=== PATIENT | male | born 2005 | race Caucasian/White ===

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

== ENCOUNTER 2025-01-13 10:17 | Emergency (ER) | payer OTHER, SELFPAY ==
[2025-01-13 10:33] VITALS: BP 147/81; PULSE 82; RESP 20; TEMP 36.8; O2SAT 98; BMI 25.8
--- NOTE | 2025-01-13 10:44 | XR_ITS ---
PROCEDURE INFORMATION: Exam: XR Right Foot Exam date and time: 01/13/2025 10:46 AM Age: 19 years old Clinical indication: Injury or trauma; Other: Dropped transmission on ankle/foot; Blunt trauma; Right TECHNIQUE: Imaging protocol: Radiologic exam of the right foot. Views: 3 or more views. COMPARISON: CR Ankle R 01/13/2025 10:44 AM FINDINGS: Bones/joints: There is no evidence of acute fracture.There is no evidence of malalignment or dislocation. Soft tissues: Normal. IMPRESSION: There is no evidence of acute fracture.There is no evidence of malalignment or dislocation.
--- NOTE | 2025-01-13 10:44 | XR_ITS ---
PROCEDURE INFORMATION: Exam: XR Right Ankle Exam date and time: 01/13/2025 10:44 AM Age: 19 years old Clinical indication: Injury or trauma; Other: Dropped transmission on ankle; Blunt trauma; Right; Injury details: Open wound on anterior ankle TECHNIQUE: Imaging protocol: Radiologic exam of the right ankle. Views: 3 or more views. COMPARISON: No relevant prior studies available. FINDINGS: Bones/joints: There is no evidence of acute fracture.There is no evidence of malalignment or dislocation. Soft tissues: Normal. IMPRESSION: There is no evidence of acute fracture.There is no evidence of malalignment or dislocation.
[2025-01-13] MEDS: LIDOCAINE 1% 10ML MDV 10 ML IJ (11:50)
--- NOTE | 2025-01-13 12:00 | HMH.EDGENADL ---
Discharge Plan Disposition Patient Disposition: Home, Self-Care Prescriptions Prescriptions: New cephalexin 500 mg capsule 1,000 mg PO BID 7 Days Qty: 28 0RF No Action ketorolac 10 mg tablet 10 mg PO Q8H PRN (Reason: pain) 1 Days Qty: 14 0RF tamsulosin [Flomax] 0.4 mg capsule 0.4 mg PO DAILY Qty: 7 0RF oxycodone 5 mg tablet 5 mg PO Q8H PRN (Reason: pain) Qty: 12 0RF ondansetron 4 mg tablet,disintegrating 4 mg PO Q8H PRN (Reason: nausea and vomiting) 4 Days Qty: 12 0RF Referrals Follow up/Referrals: Provider,Referral, MD [Primary Care Provider] - See instructions Activity Restrictions/Add. Instructions Additional Instructions/Restrictions: Call your family doctor to establish care for this visit to the emergency department and schedule follow-up within 48 hours to ensure improvement. If you have any worsening of your condition or any other concerning signs or symptoms, return to the emergency department or your primary care doctor for further evaluation. Stitches to be removed in 10 to 14 days, come to the emergency department or see your family doctor to have them removed. Clinical Impressions Clinical Impression: Foot laceration, Crush injury of right foot Print Language Print Language: Sinhala Discharge ED Provider: Fito Herrera General Adult HPI General Chief complaint: Extremity Injury, Lower Stated complaint: AO 01/12 dropped transmission on R.food cut Time Seen by Provider: 01/13/25 10:37 Mode of Arrival: Ambulatory Source of Information: Patient Description of Symptoms (Recalled from ER Triage Doc. by RN): pt had transmission dropped on right ankle last night, ankle is sore and swollen and bruised with small lac on top of foot History of Present Illness HPI narrative: Please note that above description of symptoms, in this electronic medical record under categorization of recalled from ER triage doctor by RN are reflective of an initial nursing assessment, however, is not reflective of my full history and physical exam that was personally taken and clarified. Consequentially, this preceding description of symptoms, which may include the patient's categorized chief complaint in the EMR, do not reflect my personal clinical impression, and the ultimate description of history of present illness and patient stated complaints should be deferred to this section of the note. Unless stated otherwise or congruent with this section of the note, additional signs, symptoms, or incongruence should be interpreted as inaccurate with my clinical impression. Related Data Previous Rx's ?Medication ?Instructions ?Recorded ketorolac 10 mg tablet 10 mg PO Q8H PRN pain 1 day #14 11/29/23 tabs ondansetron 4 mg disintegrating 4 mg PO Q8H PRN nausea and 11/29/23 tablet vomiting 4 days #12 tabs oxycodone 5 mg tablet 5 mg PO Q8H PRN pain #12 tabs 11/29/23 tamsulosin 0.4 mg capsule (Flomax) 0.4 mg PO DAILY #7 caps 11/29/23 cephalexin 500 mg capsule 1,000 mg (2 x 500 mg) PO BID 7 01/13/25 days #28 caps Allergies Allergy/AdvReac Type Severity Reaction Status Date / Time No Known Allergies Allergy Verified 11/29/23 14:02 [facility] Disclaimer: The information contained in this section may have been updated after the patient was seen, as this information can be updated by other users. Social History (Updated 11/29/23 @ 14:54 by Fito Herrera MD) Smoking Status: Current every day smoker alcohol intake: never current occupational status: employed Travel in the last 8 weeks?: None ROS Obtained: Yes All systems reviewed & no additional complaints except as documented Physical Exam General General appearance: alert Head Head exam: atraumatic and normocephalic Eye Eye exam: Present normal appearance, PERRL and EOMI Neck Neck exam: Present normal inspection, full ROM and trachea midline Respiratory Respiratory exam: Absent respiratory distress, wheezes, stridor, accessory muscle use or prolonged expiratory phase Cardiovascular Cardiovascular exam: Present other (Pulses equal symmetric in upper and lower extremities) Abdominal Exam Abdominal exam: Present soft; Absent distention, tenderness or pulsatile mass Extremities Exam Extremities exam: Present other (2 cm laceration overlying the distal tibia. Surrounding tenderness. Exposed muscle); Absent edema Neurological Exam Neurological exam: Present alert, oriented X3 and CN II-XII intact; Absent motor sensory deficit Skin Skin exam: Present warm and dry; Absent diaphoresis or erythema Medical Decision Making Medical Records Medical records reviewed: Yes I reviewed the patient's medical records. Screening: Per USPSTF and CDC recommendations, given the prevalence of disease in our region, it is our hospital?s policy to screen for HIV and viral Hepatitis for all patients aged 18 and over and those with ongoing risk factors. Melchor Inquiry Pt receiving controlled substance: No Melchor was queried for this patient: No Vital Signs: 01/13/25 10:33 01/13/25 12:21 Temperature 98.2 F Temperature Source Oral Pulse Rate 61 Pulse Rate [Left Radial] 82 Respiratory Rate 20 14 Blood Pressure 197/66 H Blood Pressure [Right Arm] 147/81 H Blood Pressure Mean [Right Arm] 103 02 Sat by Pulse Oximetry 98 98 Oxygen Delivery Method Room Air Room Air Orders (Tests/Meds): ED MEDICATIONS Discontinued Medications Generic Name Dose Route Start Last Admin Trade Name Freq PRN Reason Stop Dose Admin Lidocaine HCl 10 ml 01/13/25 11:42 01/13/25 11:50 Lidocaine 1% 10ml Mdv IJ 01/13/25 11:43 10 ml ONCE ONE Administration ORDERS Category Date Time Status XR ankle RT min 3V Stat Exams 01/13/25 10:44 Completed XR foot RT min 3V Stat Exams 01/13/25 10:44 Completed Medical Decision Narrative: 19-year-old male presenting with right lower extremity injury. He states that he dropped a transmission on it last night, 01/12 in the PM. Able to ambulate, came in for further evaluation given laceration. Pain is mild to moderate in intensity. History obtained to patient. On arrival, has 2 cm laceration overlying tibiotalar joint. Full range of motion. No obvious discharge or deformity. Neurovascular intact. Differential includes fracture, uncomplicated laceration, dislocation, neurovascular injury, among others. X-rays obtained. On independent interpretation, these were negative for acute bony abnormality. Laceration was numbed and repaired. Because patient at baseline without signs or symptoms of clinical decompensation, deemed appropriate for discharge. Results were relayed to patient who voiced understanding and were agreeable to outpatient management and follow up. I discussed my clinical impression with patient and answered all questions. At this time, the evidence for any other entities in the differential is insufficient to warrant any further testing or ED observation. This was explained as well. Advisory was given that persistent or worsening symptoms require further evaluation. I confirmed the understanding of this discussion. Photocomposition Keyboard Operator disclaimer Much of this encounter note is an electronic physics department chair spoken language to printed text. Electronic physics department chair of the spoken language may permit errors. Although I have reviewed the note, some errors may still exist. Procedures Laceration Laceration 1: Site: foot Side (If applicable): right Size (cm): 2 Description: linear Depth: involves subcutaneous layer Local Anesthetic: lidocaine 1% Amount of anesthesia used (mL): 5 Pre-repair: wound explored and irrigated extensively Skin layer closed with: nylon Size (cm): 3-0 Number of sutures: 3 Technique: simple, interrupted Critical Care Critical Care Time Critical Care Time: No
[2025-01-13 12:21] VITALS: BP 197/66; PULSE 61; RESP 14; O2SAT 98
[2025-01-13 13:24] VITALS: BP 136/79; PULSE 80; RESP 20; TEMP 36.8; O2SAT 98
== END 2025-01-13 13:25 | disposition home or self-care (01) ==
PROVIDERS: Emergency Provider Emergency Medicine
DX: S97.81XA Crushing injury of right foot, initial encounter (principal); S91.311A Laceration without foreign body, right foot, initial encounter; W23.2XXA Caught, crushed, jammed or pinched between a moving and stationary object, initial encounter
CPT/HCPCS: 12001; 73610; 73630; 99284; J2003

== ENCOUNTER 2025-04-27 17:14 | Emergency (ER) | payer OTHER, SELFPAY ==
[2025-04-27 17:23] VITALS: BP 155/75; PULSE 58; RESP 17; TEMP 36.9; O2SAT 99; BMI 26.8
--- OUTSIDE RECORDS SUMMARY | 2025-04-27 17:30 | XMS_ITS | Clinical Summary ---
Author Organization [facility] Address [address] [place] [address] Care Team Providers Care Tie Inspector Name Role Phone Unavailable Primary Care Provider Unavailabl e Allergies No known active allergies Immunizations Immunization Administration Dates Next Due Tdap 03/19/2023 Social History Tobacco Use Types Packs/Day Years Used Date Smoking Tobacco: Never Assessed Sex and Gender Information Value Date Recorded Sex Assigned at Not on file Legal Sex Male 2:23 PM EDT Gender Identity Not on file Sexual Orientation Not on file Plan of Treatment Health Maintenance Due Date Last Done Comments [facility]-Depression Screening 2005 [facility]-Infant/Child/Adol SDOH Screenings 2005 Fluoride Varnish 08/07/2006 [facility]- SDOH Screenings 12/07/2023 [facility]-Adult SDOH Screenings 12/07/2023 [id number] Vaccine ( season) 2024 [facility]-Influenza Vaccine (#1) 04/30/202509/11, 06/13/2011, 08/14/2010 [facility]-DTaP,Tdap,and Td Vaccines (7 - Td or Tdap) 03/19/2033 03/19/2023, 01/22/2017, 12/23/2009, Additional history exists [facility]-Zoster Vaccines (1 of 2) 12/07/2055 04/28/2011, 12/23/2009 [facility]-Hepatitis B Vaccines Completed 006, 02/09/2006, 2005 [facility]-Pneumococcal Vaccine: Pediatrics (0 to 5 Years) and At-Risk Patients (6 to 49 Years) Aged Out 12/14/2006 No longer eligible based on patient's age to complete this topic [facility]-HIB Vaccines Completed 12/23/2009, , 04/13/2006, Additional history exists [facility]-Hepatitis A Vaccines Completed 12/23/2009, 11/28 [facility]-IPV Vaccines Completed 12/23/2009, , 12/14/2006, Additional history exists [facility]-Varicella Vaccines Completed 04/28/2011, 2009 HPV Vaccines Completed 02/11/2018, 01/22/2017 [facility]-Rotavirus Vaccines Aged Out No lo nger eligible based on patient's age to complete this topic Insurance [employer]
--- NOTE | 2025-04-27 17:53 | ED_ITS ---
<Statement entered by Tereso Inman MD - 04/27/25 23:51> I was consulted by the CHADD, and we discussed the complexity of the problems being addressed. I approved the treatment and management plan for this patient's care in the emergency department, thus performing a substantive portion of the medical decision making. Tereso Inman MD Discharge Plan Disposition Patient Disposition: Home, Self-Care Prescriptions Prescriptions: New sulfamethoxazole-trimethoprim [Bactrim DS] 800-160 mg tablet 1 tab PO BID 10 Days Qty: 20 0RF No Action cephalexin 500 mg capsule 1,000 mg PO BID 7 Days Qty: 28 0RF ketorolac 10 mg tablet 10 mg PO Q8H PRN (Reason: pain) 1 Days Qty: 14 0RF tamsulosin [Flomax] 0.4 mg capsule 0.4 mg PO DAILY Qty: 7 0RF oxycodone 5 mg tablet 5 mg PO Q8H PRN (Reason: pain) Qty: 12 0RF ondansetron 4 mg tablet,disintegrating 4 mg PO Q8H PRN (Reason: nausea and vomiting) 4 Days Qty: 12 0RF Referrals Follow up/Referrals: Provider,Referral, MD [Primary Care Provider, Medical] - See instructions Activity Restrictions/Add. Instructions Additional Instructions/Restrictions: Take meds as directed. May use heat or ice for comfort. If symptoms worsen or do not improve please return to the ED or follow-up with your PCP. Clinical Impressions Clinical Impression: Injury of muscle, Insect bite Instructions Patient Instructions: DI for Wound Infection, DI for Muscle Spasm Print Language Print Language: Turkish Discharge ED Provider: Tereso Inman General Adult HPI General Chief complaint: PAIN Stated complaint: Poss bite L arm elbow area Time Seen by Provider: 04/27/25 17:48 Mode of Arrival: Ambulatory Source of Information: Patient Description of Symptoms (Recalled from ER Triage Doc. by RN): patient states he thinks one week ago he was bit by a spider one week ago on his left elbow area and today at work he started having an aching pain in his left bicep that feels like a pulled muscle History of Present Illness HPI narrative: 19-year-old male presents to the ED today for left upper arm pain. He states that today he was at work and started having tricep pain. He says he did not hear any pop or feel a pop but was working and started having pain in the tricep area closer to his elbow. He says it only hurts right next to his elbow. He has good range of motion at his elbow and pain nowhere else. He denies fevers or chills. No redness or swelling. He does have 2 bites . He says 1 has been there for 2 days and the other has been there for 7 or 8 days. He said one of them popped but the other 1 looks like it has something in it. He says he thought they were spider bites. His mom made him come today because of those bites. He has no other symptoms today. Related Data Previous Rx's ?Medication ?Instructions ?Recorded ketorolac 10 mg tablet 10 mg PO Q8H PRN pain 1 day #14 11/29/23 tabs ondansetron 4 mg disintegrating 4 mg PO Q8H PRN nausea and 11/29/23 tablet vomiting 4 days #12 tabs oxycodone 5 mg tablet 5 mg PO Q8H PRN pain #12 tab s 11/29/23 tamsulosin 0.4 mg capsule (Flomax) 0.4 mg PO DAILY #7 caps 11/29/23 cephalexin 500 mg capsule 1,000 mg (2 x 500 mg) PO BID 7 01/13/25 days #28 caps sulfamethoxazole 800 1 tab PO BID 10 days #20 tab s 04/27/25 mg-trimethoprim 160 mg tablet (Bactrim DS) Allergies Allergy/AdvReac Type Severity Reaction Status Date / Time No Known Allergies Allergy Verified 11/29/23 14:02 [facility] Disclaimer: The information contained in this section may have been updated after the patient was seen, as this information can be updated by other users. Social History (Updated 01/13/25 @ 13:24 by Fito Herrera MD) Smoking Status: Current every day smoker alcohol intake: never current occupational status: employed Travel in the last 8 weeks?: None Have you lived/traveled outside [place] in past 30 days?: No Contact w/someone who lives/traveled outside [place] past 30 days?: No Exposure to someone with infectious disease in past 14 days?: No Do you have a fever (greater than 100.4 F or 38 C)?: No Have you tested positive for COVID-19?: No Exposed to someone with COVID-19 in past 14 days?: No Do you have a sore throat?: No Do you have a cough?: No Do you have any weakness?: No Do you have any diarrhea?: No Are you experiencing any unusual bleeding?: No Do you have any muscle aches/pain?: No Do you have any abdominal pain?: No Are you experiencing loss of taste or smell?: No ROS Obtained: Yes Systems reviewed as appropriate & no additional complaints except as documented Constitutional Constitutional: Reports as per HPI Physical Exam General General appearance: alert and in no apparent distress Head Head exam: normocephalic Eye Eye exam: Present PERRL and EOMI ENT ENT exam: Present normal oropharynx and mucous membranes moist Neck Neck exam: Present full ROM and trachea midline Respiratory Respiratory exam: Present normal lung sounds bilaterally Cardiovascular Cardiovascular exam: Present regular rate, normal rhythm, normal heart sounds, +S1 and +S2 Extremities Exam Extremities exam: Present full ROM, tenderness (Medial left arm tenderness, 2 areas of erythema 1 is scabbed over the other has some drainage and it, mildly tender) and normal capillary refill Neurological Exam Neurological exam: Present alert and oriented X3 Skin Skin exam: Present warm, dry and erythema (To spots on his left medial elbow 1 is on his elbow) Medical Decision Making Medical Records Screening: Per USPSTF and CDC recommendations, given the prevalence of disease in our region, it is our hospital?s policy to screen for HIV and viral Hepatitis for all patients aged 18 and over and those with ongoing risk factors. Melchor Inquiry Pt receiving controlled substance: No Melchor was queried for this patient: No Vital Signs: 04/27/25 17:23 04/27/25 19:24 Temperature 98.4 F 97.9 F Temperature Source Oral Oral Pulse Rate 56 L Pulse Rate [Right Radial] 58 L Respiratory Rate 17 16 Blood Pressure 136/58 L Blood Pressure [Right Arm] 155/75 H Blood Pressure Mean [Right Arm] 101 Blood Pressure Source [Right Arm] Automatic Cuff Blood Pressure Position [Right Arm] Supine 02 Sat by Pulse Oximetry 99 Oxygen Delivery Method Room Air Room Air Orders (Tests/Meds): ED MEDICATIONS Discontinued Medications Generic Name Dose Route Start Last Admin Trade Name Freq PRN Reason Stop Dose Admin Ketorolac Tromethamine 30 mg 04/27/25 17:53 04/27/25 18:12 Ketorolac 30mg/Ml Vial IM 04/27/25 17:54 30 mg ONCE ONE Administration Orphenadrine Citrate 60 mg 04/27/25 17:53 04/27/25 18:13 Orphenadrine Citrate 60mg/2ml Vial IM 04/27/25 17:54 60 mg ONCE ONE Administration ORDERS Category Date Time Status Humerus XR left [XR humerus LT] Stat Exams 04/27/25 18:00 Completed Medical Decision Narrative: patient is a 19-year-old male presenting to the emergency department for evaluation of left elbow tricep pain. Patient is hemodynamically stable and nontoxic-appearing upon arrival, afebrile. Differential diagnosis includes muscle strain or sprain, bug bites versus abscess or boil, among others. Workup will be conducted with specific imaging. Initial inventions include analgesics. X-ray showed nothing acute. Patient does have a muscle strain. I am we will treat the bug bites with some Bactrim just to be sure those do not become infected. Patient has been educated and we will send meds to the pharmacy patient is safe for discharge home. Critical Care Critical Care Time Critical Care Time: No
--- NOTE | 2025-04-27 18:00 | XR_ITS ---
PROCEDURE INFORMATION: Exam: XR Left Humerus Exam date and time: 04/27/2025 5:54 PM Age: 19 years old Clinical indication: Pain; Upper arm; Left TECHNIQUE: Imaging protocol: Radiologic exam of the left humerus. Views: 2 or more views. COMPARISON: No relevant prior studies available. FINDINGS: Bones/joints: There is no evidence of acute fracture or dislocation. Joint spaces appear preserved. Soft tissues: No significant soft tissue edema. No subcutaneous emphysema or radiopaque foreign bodies. IMPRESSION: No acute posttraumatic osseous injury.
[2025-04-27] MEDS: KETOROLAC 30MG/ML VIAL 30 MG IM (18:12)
[2025-04-27] MEDS: ORPHENADRINE CITRATE 60MG/2ML VIAL 60 MG IM (18:13)
[2025-04-27 19:24] VITALS: BP 136/58; PULSE 56; RESP 16; TEMP 36.6; O2SAT 97
== END 2025-04-27 19:26 | disposition home or self-care (01) ==
PROVIDERS: Emergency Provider Emergency Medicine
DX: M79.602 Pain in left arm (principal); X58.XXXA Exposure to other specified factors, initial encounter
CPT/HCPCS: 73060; 96372; 99282; 99283; J1885; J2360